=== PATIENT | female | born 1955 | race Two or more races ===

== ENCOUNTER 2020-04-26 05:30 | Day surgery (SDC) | payer OTHER | END 2020-04-26 09:32 | disposition home or self-care (01) | LOC: AMB-ENDOS 05:30 | PROVIDERS: ATTEND Internal Medicine Gastroenterology | DX: K80.50 Calculus of bile duct without cholangitis or cholecystitis without obstruction (principal); Z20.828 Contact with and (suspected) exposure to other viral communicable diseases ==

== ENCOUNTER 2020-05-30 05:24 | Day surgery (SDC) | payer OTHER ==
[~2020-05-30 05:24] MED LIST: AVAPRO300 MG PO; NORVASC2.5 M1 PO
[2020-05-30] MEDS ORDERED: OXYCODONE HCL5 M1 PO (13:47)
[2020-05-30] MEDS ORDERED: SURFAK240 M1 PO (13:48)
[2020-05-30] MEDS ORDERED: BENADRYL25 MG PO (13:48)
[2020-05-30] MEDS ORDERED: POLY119PG PO (13:48)
[2020-05-30] MEDS ORDERED: NEURONTIN600 M1 PO (14:08)
[2020-05-30] MEDS ORDERED: ULTRAM50 MG PO (14:08)
== END 2020-05-30 16:55 | disposition home or self-care (01) ==
LOC: CIR.AMB 05:24
PROVIDERS: ATTEND Surgery
DX: K80.00 Calculus of gallbladder with acute cholecystitis without obstruction (principal); K42.9 Umbilical hernia without obstruction or gangrene; K43.2 Incisional hernia without obstruction or gangrene; Z20.828 Contact with and (suspected) exposure to other viral communicable diseases

== ENCOUNTER 2021-01-17 19:09 | Emergency (ER) | payer OTHER ==
[~2021-01-17] VITALS: Ht 162.6 cm; Wt 90.3 kg
[~2021-01-17 19:09] MED LIST changes: +BENADRYL25 MG PO; +NEURONTIN600 M1 PO; +OXYCODONE HCL5 M1 PO; +POLY119PG PO; +SURFAK240 M1 PO; +ULTRAM50 MG PO
[2021-01-17] MEDS ORDERED: HYOSCYAMINE0.125 M2 (19:34)
== END 2021-01-18 | disposition home or self-care (01) ==
LOC: ER 19:09
DX: R10.12 Left upper quadrant pain (principal); Z11.52 Encounter for screening for COVID-19